=== PATIENT | male | born 1960 | race Hispanic/Latino ===

== ENCOUNTER 2017-06-11 10:38 | Emergency (ER) | payer SELFPAY ==
[2017-06-11 11:23] LABS: CARBON DIOXIDE 30 mmol/L (21-32); CHLORIDE 99 mmol/L (101-111); CREATININE 0.9 mg/dL (0.5-1.5); GLOMERULAR FILTR. RATE CALC 93 mL/min (>60); GLUCOSE,RANDOM 298 mg/dL (70-105); POTASSIUM 3.9 mmol/L (3.5-5.1); SODIUM SERUM 137 mmol/L (136-145); UREA NITROGEN, BLOOD 11 mg/dL (7-18)
[2017-06-11 11:32] LABS: BASOPHILS % (AUTO) 0.2 % (0.0-5.0); MEAN CORPUSCULAR HEMOGLOBIN 30.8 pg (27.0-33.0); MEAN CORPUSCULAR HGB CONC 35.2 g/dL (32.0-36.0); MEAN CORPUSCULAR VOLUME 87.5 fL (79-99); NEUTROPHILS % (AUTO) 75.8 % (40.0-77.0); NUCLEATED RED BLOOD CELLS 0.1 % (0.0-0.19); PLATELET COUNT (AUTO) 170 K/uL (130-400); RED BLOOD CELL COUNT(AUTO) 5.03 MIL/uL (4.50-6.20); RED CELL DISTRIBUTION WIDTH 12.3 % (11.0-15.5); WHITE BLOOD COUNT (AUTO) 5.9 K/uL (4.8-10.8)
[2017-06-11 11:39] LABS: ALANINE AMINOTRANSFERASE 20 U/L (12-78); ALBUMIN 3.4 g/dL (3.5-5.0); ASPARTATE AMINOTRANSFERASE 12 U/L (10-37); BILIRUBIN,TOTAL 0.8 mg/dL (0.2-1.0); CREATINE KINASE MB < 0.5 ng/mL (0.5-3.6); CREATINE KINASE, TOTAL 59 U/L (21-232); MYOGLOBIN 28 ng/mL (10-92); TOTAL PROTEIN, SERUM 7.7 g/dL (6.0-8.3); TROPONIN I < 0.04 ng/mL (0.00-0.06)
[2017-06-11 11:46] LABS: APPEARANCE,URINE Clear (CLEAR); BILIRUBIN,URINE Negative (NEGATIVE); COLOR,URINE Yellow (YELLOW); GLUCOSE, URINE (UA) >=1000 mg/dL (NEGATIVE); KETONES,URINE Trace mg/dL (NEGATIVE); LEUKOCYTE ESTERASE ,URINE Negative (NEGATIVE); NITRATE,URINE Negative (NEGATIVE); OCCULT BLOOD,URINE Negative (NEGATIVE); PH,URINE 5.5 (5.0-8.0); PROTEIN,URINE Negative (NEGATIVE); UROBILINOGEN,URINE 0.2 mg/dL (0.2-1.0)
[2017-06-11 12:17] LABS: INR 0.92 (0.85-1.15); PARTIAL THROMBOPLASTIN TIME 30.1 SEC (26.3-35.5); PROTHROMBIN TIME 9.7 SEC (9.6-11.6)
[2017-06-11] MEDS ORDERED: OSELTAMIVIR PHOSPHATE 75 MG CAP ONE (12:24)
[2017-06-11] MEDS ORDERED: GUAIFENESIN-CODEINE 5 ML SYRUP ONE (12:28)
[2017-06-11] MEDS ORDERED: BENZONATATE 100 MG CAPSULE PO ONE (12:28)
[2017-06-11] MEDS ORDERED: IBUPROFEN 600 MG TABLET ONE (12:33)
[2017-06-11 12:46] LABS: BACTERIA,URINE Rare /HPF (None Seen); RBC,URINE None Seen /HPF (0-1); SQUAMOUS EPITHELIAL CELL,UR Rare /LPF (0-2); WBC,URINE 0-1 /HPF (0-1)
== END 2017-06-11 14:15 | disposition home or self-care (01) ==
LOC: EDH 10:38
DX: J10.1 Influenza due to other identified influenza virus with other respiratory manifestations (principal); I10 Essential (primary) hypertension; E11.9 Type 2 diabetes mellitus without complications; E78.5 Hyperlipidemia, unspecified; Z21 Asymptomatic human immunodeficiency virus [HIV] infection status
CPT/HCPCS: 36415; 71045; 80053; 81001; 82550; 82553; 83605; 83874; 84484; 85025; 85610; 85730; 87040; 87088; 87804; 93005; 96360; 96361

== ENCOUNTER 2018-06-06 09:35 | Emergency (ER) | payer SELFPAY | END 2018-06-06 10:22 | disposition left against medical advice (07) | LOC: EDH 09:35 | DX: K13.0 Diseases of lips (principal); E11.9 Type 2 diabetes mellitus without complications; E78.5 Hyperlipidemia, unspecified; I10 Essential (primary) hypertension; Z21 Asymptomatic human immunodeficiency virus [HIV] infection status ==

== ENCOUNTER 2018-10-22 01:27 | Inpatient (IN) | payer OTHER ==
[~2018-10-22] VITALS: Ht 180.3 cm; Wt 59.0 kg
[2018-10-22 01:56] LABS: BASOPHILS % (AUTO) 0.5 % (0.0-5.0); HEMATOCRIT 51.4 % (42-54); LYMPHOCYTES % (AUTO) 10.5 % (21.0-51.0); MEAN CORPUSCULAR HEMOGLOBIN 31.4 pg (27.0-33.0); MEAN CORPUSCULAR HGB CONC 34.9 g/dL (32.0-36.0); MEAN CORPUSCULAR VOLUME 89.8 fL (79-99); NUCLEATED RED BLOOD CELLS 0.1 % (0.0-0.19); PLATELET COUNT (AUTO) 266 K/uL (130-400); RED BLOOD CELL COUNT(AUTO) 5.72 MIL/uL (4.50-6.20); RED CELL DISTRIBUTION WIDTH 12.9 % (11.0-15.5); WHITE BLOOD COUNT (AUTO) 9.5 K/uL (4.8-10.8)
[2018-10-22] MEDS ORDERED: ONDANSETRON HCL 4 MG/2 ML VIAL ONE (01:57)
[2018-10-22] MEDS ORDERED: ASPIRIN 325 MG TABLET ONE (01:57)
[2018-10-22 02:11] LABS: ALBUMIN 4.4 g/dL (3.5-5.0); BILIRUBIN,TOTAL 1.1 mg/dL (0.2-1.0); CREATININE 1.5 mg/dL (0.5-1.5); POTASSIUM 4.6 mmol/L (3.5-5.1); TOTAL PROTEIN, SERUM 7.7 g/dL (6.0-8.3)
[2018-10-22 02:19] LABS: INR 0.94 (0.85-1.15); PARTIAL THROMBOPLASTIN TIME 24.5 SEC (26.3-35.5); PROTHROMBIN TIME 9.9 SEC (9.6-11.6)
[2018-10-22] MEDS ORDERED: SODIUM CHLORIDE 0.9% 1000ML 1,000 ML IV ONE ×2 (02:37→03:31)
[2018-10-22] MEDS ORDERED: NITROGLYCERIN 1GM/1 INCH PACKET TD ONE (03:30)
[2018-10-22 03:58] LABS: APPEARANCE,URINE Clear (CLEAR); BILIRUBIN,URINE Negative (NEGATIVE); COLOR,URINE Yellow (YELLOW); GLUCOSE, URINE (UA) >=1000 mg/dL (NEGATIVE); KETONES,URINE 15 mg/dL (NEGATIVE); LEUKOCYTE ESTERASE ,URINE Negative (NEGATIVE); NITRATE,URINE Negative (NEGATIVE); OCCULT BLOOD,URINE Negative (NEGATIVE); PROTEIN,URINE POS 2+ mg/dL (NEGATIVE)
[2018-10-22 04:06] LABS: AMPHET/METH SCREEN,URINE NEGATIVE (NEGATIVE); BARBITURATE SCREEN, URINE NEGATIVE (NEGATIVE); BENZODIAZEPINES SCREEN,URINE NEGATIVE (NEGATIVE); CANNABINOID SCREEN,URINE NEGATIVE (NEGATIVE); COCAINE SCREEN,URINE POSITIVE (NEGATIVE); OPIATE SCREEN,URINE NEGATIVE (NEGATIVE); PHENCYCLIDINE SCREEN,URINE NEGATIVE (NEGATIVE)
[2018-10-22] MEDS ORDERED: NITROGLYCERIN 50 MG/D5% WATER 1 BOT ONE (04:33)
[2018-10-22 04:43] LABS: BACTERIA,URINE Few /HPF (None Seen); RBC,URINE 0-1 /HPF (0-1); SQUAMOUS EPITHELIAL CELL,UR 0-2 /HPF (0-2); WBC,URINE 0-1 /HPF (0-1)
[2018-10-22] MEDS ORDERED: SODIUM CHLORIDE 0.9% 1000ML 1,000 ML IV SCH (05:05)
[2018-10-22] MEDS ORDERED: LORAZEPAM 2 MG/ML 1 ML VIAL IVP PRN (05:15)
[2018-10-22] MEDS ORDERED: ONDANSETRON HCL 4 MG/2 ML VIAL IV PRN (05:15)
[2018-10-22] MEDS ORDERED: MORPHINE SULFATE 4 MG/1ML SYG IV PRN (05:15)
[2018-10-22] MEDS ORDERED: MORPHINE SULFATE 2 MG/ML 1ML SYG IV PRN (05:15)
[2018-10-22] MEDS ORDERED: ACETAMINOPHEN 325 MG TAB PO PRN ×2 (05:15)
[2018-10-22] MEDS ORDERED: FAMOTIDINE/PF 20 MG/2 ML VIAL IV SCH (09:00)
[2018-10-22] MEDS ORDERED: ENOXAPARIN SODIUM 30 MG/0.3 ML SQ SCH (09:00)
[2018-10-22] MEDS ORDERED: FAMOTIDINE/PF 20 MG/2 ML VIAL IV ONE (09:13)
--- NOTE | 2018-10-22 10:28 | NUR ---
DCCortney SW MET WITH PT WHO LIVES INDEPENDENTLY WITH HIS LIFE PARTNER [employer] [phone]. PT REPORTS HE IS CURRENTLY UNEMPLOYED, DRIVES, COMPLETES ADLS ON HIS OWN, NO DME OR IN HOME CARE SERVICES. SEES MARISSA TOVAR FOR MEDICAL CARE AND USES [facility]. DENIES DC NEEDS. CM TO FOLLOW AND ASSIST NEEDED. DCP HOME AT [facility] Addendum: 10/22/18 at 1031 by VIR[place] CONDON Amended: Links added.
[2018-10-22 11:48] LABS: CREATINE KINASE, TOTAL 227 U/L (21-232); MYOGLOBIN 106 ng/mL (10-92); TROPONIN I < 0.04 ng/mL (0.00-0.06)
[2018-10-22 13:30] VITALS: BP 139/89
[2018-10-22] MEDS ORDERED: GLIP1TAB6 PO (13:48)
[2018-10-22] MEDS ORDERED: JULUCA PO (13:48)
[2018-10-22] MEDS ORDERED: LISI-617 PO (13:48)
[2018-10-22] MEDS ORDERED: LOVA20TA3 PO (13:48)
[2018-10-22] MEDS ORDERED: TAMS-1 PO (13:51)
[2018-10-22 16:00] VITALS: BP 128/84
[2018-10-22 17:15] LABS: CREATINE KINASE, TOTAL 189 U/L (21-232); MYOGLOBIN 78 ng/mL (10-92); TROPONIN I < 0.04 ng/mL (0.00-0.06)
[2018-10-22] MEDS ORDERED: DEXTROSE 50%-WATER 50 ML DISP.SYRIN IV PRN (17:15)
[2018-10-22] MEDS ORDERED: GLUCAGON 1MG KIT 1 MG ML IM PRN (17:15)
[2018-10-22] MEDS ORDERED: PANT40TA25 PO (18:50)
--- NOTE | 2018-10-22 19:10 | NUR ---
DISCHARGE VERBAL & WRITTEN DISCHARGE INSTRUCTIONS REVIEWED & GIVEN TO PT. QUESTIONS ENCOURAGED & CLARIFIED. PROPER CARE & MGT OF CHEST PAIN REVIEWED. NEW PRESCRIBED MEDICATION REVIEWED. PRESCRIPTION GIVEN TO PT; SIGNED COPY PLACED IN CHART. PT TO F/U W/PCP IN 1 WEEK. PT & TO GATHER PERSONAL BELONGINGS. WILL NOTIFY STAFF WHEN READY TO BE TAKEN TO PRIVATE VEHICLE. Addendum: 10/22/18 at 1938 by ALEXY BREAUX RN RN IV DISCONTINUED. TELE EUGENE REMOVED.
--- NOTE | 2018-10-22 19:30 | NUR ---
DISCHARGE PT TAKEN AMBULATED TO PRIVATE VEHICLE ACCOMPANIED BY MYSELF, Cassie BREAUX RN, & FAMILY. TOLERATED WELL. NO DISTRESS NOTED.
[2018-10-22] MEDS ORDERED: INSULIN HUMULIN R 100 UNIT/ML 3ML SQ SCH (21:00)
[2018-10-23] MEDS ORDERED: FAMOTIDINE 20MG TAB 20 MG TAB PO SCH (09:00)
== END 2018-10-22 19:30 | disposition home or self-care (01) | DRG 392 ==
LOC: EDH 01:27 → EDHIP 01:28 → 2DH 13:39
PROVIDERS: ADMIT Internal Medicine; ATTEND Internal Medicine
DX: K21.9 Gastro-esophageal reflux disease without esophagitis (principal); E11.9 Type 2 diabetes mellitus without complications; E78.2 Mixed hyperlipidemia; F14.90 Cocaine use, unspecified, uncomplicated; F17.200 Nicotine dependence, unspecified, uncomplicated; I10 Essential (primary) hypertension; N40.0 Benign prostatic hyperplasia without lower urinary tract symptoms; Z21 Asymptomatic human immunodeficiency virus [HIV] infection status; M41.9 Scoliosis, unspecified; Z79.84 Long term (current) use of oral hypoglycemic drugs; Z79.899 Other long term (current) drug therapy; Z71.51 Drug abuse counseling and surveillance of drug abuser; Z91.14 Patient's other noncompliance with medication regimen
CPT/HCPCS: 36415; 71101; 72100; 73590; 80053; 80305; 81001; 82150; 82310; 82550; 82947; 82948; 83690; 83874; 83970; 84105; 84443; 84484; 85025; 85610; 85730; 93005; 99291; G0378; J2405; J3490; J7030

== ENCOUNTER 2019-05-12 06:17 | Emergency (ER) | payer OTHER, SELFPAY ==
[~2019-05-12 06:17] MED LIST: GLIP1TAB6 PO; JULUCA PO; LISI-617 PO; LOVA20TA3 PO; PANT40TA25 PO; TAMS-1 PO
[2019-05-12] MEDS ORDERED: NAPROXEN 500 MG TABLET ONE (07:31)
== END 2019-05-12 07:53 | disposition home or self-care (01) ==
LOC: EDH 06:17
DX: M25.562 Pain in left knee (principal); Z79.899 Other long term (current) drug therapy; E78.5 Hyperlipidemia, unspecified; I10 Essential (primary) hypertension
CPT/HCPCS: 29505; 73562

== ENCOUNTER 2023-03-21 11:12 | Emergency (ER) | payer OTHER ==
[~2023-03-21] VITALS: Ht 180.3 cm; Wt 79.4 kg
[~2023-03-21 11:12] MED LIST changes: -LISI-617 PO; +LISI5TAB21 PO; -PANT40TA25 PO; +PANT40TA55 PO
[2023-03-21 11:19] VITALS: BP 120/69; O2SAT 96
[2023-03-21] MEDS ORDERED: IPRATROPIUM/ALBUTEROL SULFATE 3 ML SOLUTION IH ONE (12:00)
[2023-03-21] MEDS ORDERED: GUAIFENESIN/DEXTROMETHORPHAN 1 EACH TAB.SR.12H PO ONE (12:00)
[2023-03-21] MEDS ORDERED: DEXAMETHASONE SOD PHOSPHATE 4 MG/ML 1ML VIAL IVP ONE (12:00)
[2023-03-21 13:05] LABS: BASOPHILS # (AUTO) 0.01 K/uL (0.00-0.20); BASOPHILS % (AUTO) 0.1 % (0.0-5.0); HEMATOCRIT 44.2 % (42-54); IMMATURE GRANULOCYTE ABSOLUTE 0.03 K/uL (0-1); LYMPHOCYTES # (AUTO) 0.9 K/uL (1.0-4.8); LYMPHOCYTES % (AUTO) 12.4 % (21.0-51.0); MEAN CORPUSCULAR HEMOGLOBIN 29.7 pg (27.0-33.0); MEAN CORPUSCULAR HGB CONC 33.5 g/dL (32.0-36.0); MEAN CORPUSCULAR VOLUME 88.6 fL (79-99); MONOCYTES # (AUTO) 0.4 K/uL (0.1-1.0); MONOCYTES % (AUTO) 5.4 % (3.0-13.0); NEUTROPHILS # (AUTO) 5.6 K/uL (1.8-7.7); NEUTROPHILS % (AUTO) 81.7 % (40.0-77.0); PLATELET COUNT (AUTO) 243 K/uL (130-400); RED BLOOD CELL COUNT(AUTO) 4.99 MIL/uL (4.50-6.20); RED CELL DISTRIBUTION WIDTH 11.6 % (11.0-15.5); WHITE BLOOD COUNT (AUTO) 6.8 K/uL (4.8-10.8)
[2023-03-21 13:11] LABS: SARS-CoV-2, RNA, NAAT NEGATIVE SARS CoV-2 (NEGATIVE)
[2023-03-21 13:18] VITALS: PULSE 96; RESP 20
[2023-03-21 13:19] LABS: INFLUENZA TYPE B Negative For Type B (NEGATIVE)
[2023-03-21 13:22] LABS: ALBUMIN 3.3 g/dL (3.5-5.0); BILIRUBIN,TOTAL 0.6 mg/dL (0.2-1.0); TOTAL PROTEIN, SERUM 8.6 g/dL (6.0-8.3)
[2023-03-21 13:26] LABS: INFLUENZA TYPE A Positive For Type A (NEGATIVE)
[2023-03-21 13:28] LABS: RAPID GROUP A STREP positive (NEGATIVE)
[2023-03-21] MEDS ORDERED: OSELTAMIVIR PHOSPHATE 75 MG CAP PO ONE (14:00)
[2023-03-21] MEDS ORDERED: AMOXICILLIN 500 MG CAPSULE PO ONE (14:00)
[2023-03-21] MEDS ORDERED: BROM118S48 PO (14:22)
[2023-03-21] MEDS ORDERED: OSEL75 PO (14:22)
[2023-03-21] MEDS ORDERED: AMOX500C2 PO (14:22)
== END 2023-03-21 14:54 | disposition home or self-care (01) ==
LOC: EDH 11:12
DX: J11.1 Influenza due to unidentified influenza virus with other respiratory manifestations (principal); J02.0 Streptococcal pharyngitis; R05.9 Cough, unspecified; R50.9 Fever, unspecified; I10 Essential (primary) hypertension; E78.00 Pure hypercholesterolemia, unspecified; E11.9 Type 2 diabetes mellitus without complications; Z20.822 Contact with and (suspected) exposure to COVID-19
CPT/HCPCS: 99284; 96374; 71045; 87635; 80053; 85025; 87880; 87804 ×2; 36415; 94640; J1100; C9803

== ENCOUNTER 2023-04-01 14:13 | Emergency (ER) | payer OTHER ==
[~2023-04-01] VITALS: Ht 180.3 cm; Wt 77.1 kg
[~2023-04-01 14:13] MED LIST changes: +AMOX500C2 PO; +BROM118S48 PO; +OSEL75 PO
[2023-04-01 15:09] LABS: BASOPHILS # (AUTO) 0.04 K/uL (0.00-0.20); BASOPHILS % (AUTO) 0.3 % (0.0-5.0); EOSINOPHILS # (AUTO) 0.01 K/uL (0.00-0.70); EOSINOPHILS % (AUTO) 0.1 % (0.0-8.0); HEMATOCRIT 34.9 % (42-54); IMMATURE GRANULOCYTE ABSOLUTE 0.07 K/uL (0-1); LYMPHOCYTES # (AUTO) 1.1 K/uL (1.0-4.8); LYMPHOCYTES % (AUTO) 7.9 % (21.0-51.0); MEAN CORPUSCULAR HEMOGLOBIN 28.9 pg (27.0-33.0); MEAN CORPUSCULAR HGB CONC 33.5 g/dL (32.0-36.0); MEAN CORPUSCULAR VOLUME 86.2 fL (79-99); MONOCYTES # (AUTO) 0.8 K/uL (0.1-1.0); MONOCYTES % (AUTO) 5.8 % (3.0-13.0); NEUTROPHILS # (AUTO) 11.4 K/uL (1.8-7.7); NEUTROPHILS % (AUTO) 85.4 % (40.0-77.0); PLATELET COUNT (AUTO) 308 K/uL (130-400); RED BLOOD CELL COUNT(AUTO) 4.05 MIL/uL (4.50-6.20); RED CELL DISTRIBUTION WIDTH 11.3 % (11.0-15.5); WHITE BLOOD COUNT (AUTO) 13.4 K/uL (4.8-10.8)
[2023-04-01 15:21] LABS: INR 0.94 (0.85-1.15)
[2023-04-01 15:22] LABS: PARTIAL THROMBOPLASTIN TIME 29.5 SEC (26.3-35.5)
[2023-04-01 15:48] LABS: ALBUMIN 2.5 g/dL (3.5-5.0); CREATININE 1.1 mg/dL (0.5-1.5); POTASSIUM 3.9 mmol/L (3.5-5.1)
[2023-04-01 15:50] LABS: BILIRUBIN,TOTAL 0.8 mg/dL (0.2-1.0); TOTAL PROTEIN, SERUM 6.9 g/dL (6.0-8.3)
[2023-04-01] MEDS ORDERED: 0.9%NACL 1000ML 1,000 ML IV SCH (16:00)
[2023-04-01] MEDS ORDERED: LEVOFLOXACIN 500 MG/D5W 100 ML 100 ML IV SCH (16:00)
[2023-04-01] MEDS ORDERED: INSULIN HUMULIN R 100 UNIT/ML 3ML IV ONE (16:30)
[2023-04-01 17:29] LABS: APPEARANCE,URINE CLEAR (CLEAR); BILIRUBIN,URINE NEGATIVE (NEGATIVE); COLOR,URINE LIGHT-YELLOW (YELLOW); GLUCOSE, URINE (UA) >=1000 mg/dL (NEGATIVE); KETONES,URINE NEGATIVE (NEGATIVE); LEUKOCYTE ESTERASE ,URINE NEGATIVE Leu/uL (NEGATIVE); NITRATE,URINE NEGATIVE (NEGATIVE); OCCULT BLOOD,URINE NEGATIVE (NEGATIVE); PROTEIN,URINE NEGATIVE (NEGATIVE); UROBILINOGEN,URINE 0.2 mg/dL (0.2-1.0)
[2023-04-01 17:30] LABS: ADD UA MICROSCOPIC YES
[2023-04-01 17:31] LABS: WBC,URINE 0-1 /HPF (0-1)
[2023-04-01] MEDS ORDERED: BENZ-39 PO (17:37)
[2023-04-01] MEDS ORDERED: METH4TAB3 PO (17:37)
[2023-04-01 18:13] VITALS: BP 108/64; PULSE 88; RESP 18; O2SAT 98
== END 2023-04-01 18:22 | disposition home or self-care (01) ==
LOC: EDH 14:13
DX: E11.65 Type 2 diabetes mellitus with hyperglycemia (principal); E86.0 Dehydration; R79.89 Other specified abnormal findings of blood chemistry; R50.9 Fever, unspecified; I10 Essential (primary) hypertension; E11.9 Type 2 diabetes mellitus without complications; E78.00 Pure hypercholesterolemia, unspecified; Z79.899 Other long term (current) drug therapy; Z21 Asymptomatic human immunodeficiency virus [HIV] infection status
CPT/HCPCS: 99284; 96365; 71045; 96366; 96375; 87426; 80053; 85025; 85610; 85730; 87040 ×2; 87088; 82948; 83605 ×2; 81001; 36415; J1815; J1956